=== PATIENT | female | born 1950 | race Caucasian/White ===

== ENCOUNTER 2018-08-15 07:04 | Emergency (ER) | payer OTHER ==
[2018-08-15 07:23] LABS: ADD MAN DIFF? NO
[2018-08-15 07:24] LABS: BASOPHILS % 0.8 % (0.0-2.0); EOSINOPHILS # 0.1 10^3/ul (0.0-0.5); EOSINOPHILS % 2.9 % (0.0-7.0); HEMATOCRIT 37.7 % (37.0-47.0); HEMOGLOBIN 12.2 g/dl (12.0-16.0); LYMPHOCYTES # 1.4 10^3/ul (0.8-2.9); LYMPHOCYTES % 29.6 % (15.0-51.0); MEAN CORPUSCULAR HEMOGLOBIN 31.6 pg (29.0-33.0); MEAN CORPUSCULAR HGB CONC 32.4 g/dl (32.0-37.0); MEAN CORPUSCULAR VOLUME 97.7 fl (82.0-101.0); MEAN PLATELET VOLUME 9.6 fl (7.4-10.4); MONOCYTE # 0.6 10^3/ul (0.3-0.9); MONOCYTES % 11.3 % (0.0-11.0); NEUTROPHIL # 2.7 10^3/ul (1.6-7.5); NEUTROPHILS % 55.2 % (39.0-77.0); PLATELET COUNT 279 10^3/UL (140-415); RED BLOOD COUNT 3.86 10^6/ul (4.20-5.40); RED CELL DISTRIBUTION WIDTH 16.3 % (11.5-14.5)
[2018-08-15 07:24] LABS: WHITE BLOOD COUNT 4.9 10^3/ul (4.8-10.8)
[2018-08-15 07:46] LABS: ANION GAP 10 (5-13); BLOOD UREA NITROGEN 13 mg/dl (7-20); CARBON DIOXIDE 33 mmol/L (21-31); CHLORIDE 97 mmol/L (97-110); CHOL/HDL RATIO 2.8 RATIO; CHOLESTEROL 171 mg/dl (100-200); CREATINE KINASE 53 IU/L (23-200); CREATININE 2.49 mg/dl (0.44-1.00); Estimated GFR 19 mL/min (>60); GLUCOSE 146 mg/dl (70-220); HDL CHOLESTEROL 61 mg/dl (33-92); LDL CHOLESTEROL,CALCULATED 61 mg/dl; POTASSIUM 4.6 mmol/L (3.5-5.1); SODIUM 140 mmol/L (135-144); TRIGLYCERIDES 247 mg/dl (0-149)
[2018-08-15 07:50] LABS: ETHANOL < 10.0 mg/dl (0-0)
[2018-08-15 07:52] LABS: HEMOGLOBIN A1C 6.3 % (0-5.9)
[2018-08-15 07:57] LABS: CK INDEX 1.2; CK-MB 0.62 ng/ml (0.0-2.4); TROPONIN-I 0.024 ng/ml (0.000-0.120)
[2018-08-15] MEDS: LABETALOL HCL 20MG INJ IV (07:57)
[2018-08-15 07:58] LABS: INR 1.01; PROTIME 13.4 Sec (11.9-14.9)
[2018-08-15 07:59] LABS: PARTIAL THROMBOPLASTIN TIME 32.7 Sec (23.0-35.0)
[2018-08-15] MEDS: ASPIRIN 325 MG TAB PO (07:59)
[2018-08-15] MEDS: ASPIRIN 300 MG SUPP PR (09:05)
[2018-08-15] MEDS: IOHEXOL 100 ML (09:07)
[2018-08-15] MEDS: SOD CHLORIDE 0.9% 100 ML (09:07)
== END 2018-08-15 10:20 | disposition short-term general hospital (02) ==
LOC: E/R 07:04
DX: R40.4 Transient alteration of awareness (principal); I25.2 Old myocardial infarction; I50.9 Heart failure, unspecified; I10 Essential (primary) hypertension; Z79.82 Long term (current) use of aspirin; Z79.84 Long term (current) use of oral hypoglycemic drugs; Z86.011 Personal history of benign neoplasm of the brain
CPT/HCPCS: 36415; 70450; 70496; 70498; 71045; 80048; 80061; 80307; 82550; 82553; 83036; 84484; 85025; 85610; 85730; 86850; 86900; 86901; 93005; 96374; 99285-25

== ENCOUNTER 2018-09-12 03:39 | Emergency (ER) | payer OTHER ==
[2018-09-12 04:01] LABS: ADD MAN DIFF? NO
[2018-09-12 04:05] LABS: BASOPHILS % 0.8 % (0.0-2.0); EOSINOPHILS # 0.2 10^3/ul (0.0-0.5); EOSINOPHILS % 3.1 % (0.0-7.0); HEMATOCRIT 37.5 % (37.0-47.0); HEMOGLOBIN 11.7 g/dl (12.0-16.0); LYMPHOCYTES # 1.5 10^3/ul (0.8-2.9); LYMPHOCYTES % 27.8 % (15.0-51.0); MEAN CORPUSCULAR HEMOGLOBIN 31.5 pg (29.0-33.0); MEAN CORPUSCULAR HGB CONC 31.2 g/dl (32.0-37.0); MEAN CORPUSCULAR VOLUME 100.8 fl (82.0-101.0); MEAN PLATELET VOLUME 9.7 fl (7.4-10.4); MONOCYTE # 0.6 10^3/ul (0.3-0.9); MONOCYTES % 10.7 % (0.0-11.0); NEUTROPHILS % 57.2 % (39.0-77.0); PLATELET COUNT 233 10^3/UL (140-415); RED BLOOD COUNT 3.72 10^6/ul (4.20-5.40); RED CELL DISTRIBUTION WIDTH 15.4 % (11.5-14.5)
[2018-09-12 04:05] LABS: WHITE BLOOD COUNT 5.2 10^3/ul (4.8-10.8)
[2018-09-12 04:21] LABS: ANION GAP 13 (5-13); BLOOD UREA NITROGEN 48 mg/dl (7-20); CALCIUM 10.1 mg/dl (8.4-10.2); CARBON DIOXIDE 27 mmol/L (21-31); CHLORIDE 98 mmol/L (97-110); CHOL/HDL RATIO 2.8 RATIO; CHOLESTEROL 154 mg/dl (100-200); CREATINE KINASE 47 IU/L (23-200); CREATININE 7.46 mg/dl (0.44-1.00); Estimated GFR 5 mL/min (>60); GLUCOSE 242 mg/dl (70-220); HDL CHOLESTEROL 55 mg/dl (33-92); LDL CHOLESTEROL,CALCULATED 69 mg/dl; POTASSIUM 5.9 mmol/L (3.5-5.1); SODIUM 138 mmol/L (135-144); TRIGLYCERIDES 150 mg/dl (0-149)
[2018-09-12 04:22] LABS: INR 0.92; PROTIME 12.5 Sec (11.9-14.9)
[2018-09-12 04:23] LABS: PARTIAL THROMBOPLASTIN TIME 32.1 Sec (23.0-35.0)
[2018-09-12 04:24] LABS: ETHANOL < 10.0 mg/dl (0-0)
[2018-09-12 04:33] LABS: CK INDEX 1.1; CK-MB 0.51 ng/ml (0.0-2.4); TROPONIN-I 0.031 ng/ml (0.000-0.120)
[2018-09-12 04:47] LABS: ADD UMIC YES; UR ASCORBIC ACID NEGATIVE (NEGATIVE); UR BILIRUBIN (Dip) NEGATIVE (NEGATIVE); UR BLOOD (Dip) NEGATIVE (NEGATIVE); UR CLARITY CLEAR (CLEAR); UR COLOR STRAW (YELLOW); UR GLUCOSE (Dip) 3+ mg/dL (NEGATIVE); UR KETONES (Dip) NEGATIVE (NEGATIVE); UR LEUKOCYTE ESTERASE (Dip) NEGATIVE Leu/ul (NEGATIVE); UR NITRITE (Dip) NEGATIVE (NEGATIVE); UR RBC 5 /HPF (0-5); UR SPECIFIC GRAVITY (Dip) 1.006 (1.003-1.030); UR TOTAL PROTEIN (Dip) 3+ mg/dl (NEGATIVE); UR UROBILINOGEN (Dip) NEGATIVE (NEGATIVE); UR WBC 0 /HPF (0-5)
[2018-09-12] MEDS ORDERED: SODIUM POLYSTYRENE 15 GM KIT (POWDER + SORBITOL) PO (04:53)
[2018-09-12 04:59] LABS: AMPHETAMINE/METHAMPHETAMINE Negative (NEGATIVE); BARBITURATES Negative (NEGATIVE); BENZODIAZEPINES Negative (NEGATIVE); CANNABINOIDS Negative (NEGATIVE); COCAINE Negative (NEGATIVE); OPIATES Negative (NEGATIVE)
[2018-09-12] MEDS ORDERED: DEXTROSE 50% 50 ML SYRINGE IV (05:00)
[2018-09-12] MEDS: ALBUTEROL 0.5% (NEB) 2.5 MG/0.5 ML AMP INH (05:04)
[2018-09-12] MEDS: DEXTROSE 50% 50 ML SYRINGE IV (05:22)
[2018-09-12] MEDS: INSULIN REGULAR, HUMAN 100 UNIT/1 ML 3ML VIAL IVP (05:24)
[2018-09-12 07:43] LABS: HEMOGLOBIN A1C 6.9 % (0-5.9)
== END 2018-09-12 06:49 | disposition short-term general hospital (02) ==
LOC: E/R 03:39
DX: G93.40 Encephalopathy, unspecified (principal); E87.5 Hyperkalemia; D64.9 Anemia, unspecified; E11.22 Type 2 diabetes mellitus with diabetic chronic kidney disease; N18.6 End stage renal disease; I12.0 Hypertensive chronic kidney disease with stage 5 chronic kidney disease or end stage renal disease; Z99.2 Dependence on renal dialysis; Z86.73 Personal history of transient ischemic attack (TIA), and cerebral infarction without residual deficits; Z79.84 Long term (current) use of oral hypoglycemic drugs; Z79.4 Long term (current) use of insulin
CPT/HCPCS: 36415; 70450; 71045; 80048; 80061; 80307; 81001; 82550; 82553; 82962; 83036; 84484; 85025; 85610; 85730; 93005; 94644; 96374; 96375; 99285-25